=== PATIENT | female | born 1980 | race Caucasian/White ===

== ENCOUNTER 2020-04-20 12:44 | Inpatient (IN) | payer OTHER ==
[2020-04-20] VITALS (28 sets, daily range): BP systolic 110–161; BP diastolic 66–89
--- NOTE | 2020-04-20 12:30 | NUR ---
Arrived to unit via EMS on cart, pt awake and slightly drowsy. Report at the bedside from EMS. THis RN and Dr Wiley to bedside. Pt transferred to bed by multiple staff and EMS. Plan of care reviewed with pt and hx obtained by DR Wiley and this RN. Assessment of vaginal bleeding reveals moderate to heavy noted on pad with several 2-3cm clots noted on pad. abdomen firm upon palpation and pt moaning softly. Ultrasound applied per Dr Wiley with no movement noted and no fhr noted per dr wiley. VS obtained per Harika Red RN. 1240 IV initiated with LR bolus infusing per pump at 999ml/hr. 02 per non-rebreather mask initiated at 15L [address] wiley 1243 doppler at this time with no heart tones detected
[~2020-04-20 12:44] MED LIST: LACTATED RINGERS 1,000 ML IV ONE
[2020-04-20] MEDS ORDERED: MISOPROSTOL 200 MCG (CYTOTEC) TABLET PO ONE ×2 (12:45→14:15)
[2020-04-20] MEDS ORDERED: D5 LR IV SOLUTION 1,000 ML IV SCH ×2 (12:50→17:53)
[2020-04-20] MEDS ORDERED: BUTORPHANOL INJ 2 MG/ML (STADOL) VIAL IV ONE (13:00)
[2020-04-20] MEDS ORDERED: BUTORPHANOL INJ 2 MG/ML (STADOL) VIAL ONE (13:01)
[2020-04-20] MEDS ORDERED: OXYTOCIN PRE-MIX DRIP 500 ML IV ONE (13:07)
--- NOTE | 2020-04-20 13:15 | History & Physical-OB/GYN ---
History of Present Illness History of Present Illness Reason for visit/HPI Presented by EMS from home for vaginal bleeding. No care. with history of 10 vaginal deliveries. All at hospital. Had last delivery with Dr. Vee, but had PNC with [facility] certified credit counselor with this . She states she started having back pain and contractions last night, but having bleeding this morning. She thinks she is 35 weeks based on her LMP. EMS planned to take to [place] but instead came this way at family request. She states history of blood pressure problems with previous pregnancies but not with this one. She is not on any medications except vitamins. EMS did not check contractions or hearttones (did not have ability to). They attempted IV access and patient states she "is a difficult stick". In addition, she reports increased abdominal pain. Cannot remember or tell me when the baby last moved or she appreciated any movement. States all her babies have been "big". She does not have nausea. She is talking but EMS states she has been more quiet and not talking, more moaning, the last few minutes of the ambulance ride. He did say she had a consistent flow of blood from vagina. She presents with large pad soaked through with large clots. There is blood on the legs and inner thighs. She is on the ambulance gurney and is moaning rhythmically about every 2 minutes. By bedside US there no no movement, no hearttones. There is fluid. Cervix is 7/90/-2 and membranes intact. I can palpate the vertex. There is not evidence of previa. suspect placental abruption. Date of Admission 04/20/2020 Date Seen by a Provider: Apr 20, 2020 Time Seen by a Provider: 12:40 I consulted on this patient on 04/20/20 13:01 Attending Physician Margarette Grullon DO Admitting Physician No,Local Physician Consult Allergies and Home Medications Allergies Coded Allergies: No Known Drug Allergies (Unverified , 04/20/20) Patient Home Medication List Home Medication List Reviewed: Yes Past Spobaoh-Jtvicx-Bzjlyb Hx Patient Social History Marrital Status: Number of Children: 10 Number of living children: 10 Employed/Student: unemployed Alcohol Use: Denies Use Recreational Drug Use: No Smoking Status: Never a Smoker 2nd Hand Smoke Exposure: No Physical Abuse Screen: No Sexual Abuse: No Recent Foreign Travel: No Contact w/other who traveled: No Recent Hopitalizations: No Recent Infectious Disease Expo: No Immunizations Up To Date Tetanus Booster (TDap): Unknown Seasonal Allergies Seasonal Allergies: No Surgeries Yes Respiratory Yes Cardiovascular Yes Neurological Yes Reproductive System : Yes Hx : 11 Hx Para: 10 Hx Total # of Abortions (Spona: 0 Hx Reproductive Disorders: No Sexually Transmitted Disease: No HIV/AIDS: No Female Reproductive Disorders: Denies Genitourinary No Gastrointestinal No Musculoskeletal No HEENT History of HEENT Disorders: No Loss of Vision: Denies Cancer No Did You Recieve Any Treatments: No Psychosocial History of Psychiatric Problem: No Blood Transfusions History of Blood Disorders: No Reviewed Nursing Assessment Reviewed/Agree w Nursing PMH: Yes Family Medical History Significant Family History: No Pertinent Family Hx Review of Systems Constitutional: dizziness, weakness EENTM: no symptoms reported Respiratory: short of breath Cardiovascular: other (tachycardia) Gastrointestinal: no symptoms reported Genitourinary: no symptoms reported Expected Date of Delivery: May 24, 2020 Control/STD Prophylaxis: None Musculoskeletal: no symptoms reported Skin: no symptoms reported Psychiatric/Neurological: No Symptoms Reported All Other Systems Reviewed Negative Unless Noted: Yes Physical Exam Physical Exam Vital Signs Capillary Refill : General Appearance: Moderate Distress Respiratory: Lungs Clear Cardiovascular: No Edema, Tachycardia Abdominal: normal bowel sounds Gynecology/General: Other (abdomen is tense with contractions noted every 2 minutes. Tender to palpation) Labia: WNL Vagina: Bleeding Cervix: Other (see above) Pelvic Exam: vaginal bleeding, other (AROM with bloody fluid) Assessment/Plan Admission Diagnosis 1. approximately 35 week gestation based on LMP 2. No pnc 3. third trimester bleeding with suspected abruption Admitted. Plan AROM and delivery Placenta to path Labs pending. She will accept blood products if needed. DIC panel done. preeclampsia labs done (BP 138/82, P 108) Admission Status: Inpatient Order (span 2 midnights) Reason for Inpatient Admission: placental abruption MARGARETTE GRULLON DO Apr 20, 2020 13:15
[2020-04-20 13:50] LABS: BILIRUBIN,URINE NEGATIVE (NEGATIVE); CLARITY,URINE SL CLOUDY; COLOR,URINE YELLOW; GLUCOSE, URINE (UA) NEGATIVE (NEGATIVE); KETONES,URINE NEGATIVE (NEGATIVE); LEUKOCYTE ESTERASE ,URINE NEGATIVE (NEGATIVE); NITRITE,URINE NEGATIVE (NEGATIVE); PH,URINE 5.5 (5-9); PROTEIN,URINE TRACE (NEGATIVE)
--- NOTE | 2020-04-20 13:54 | NUR ---
spontaneous vaginal delivery of non-viable male infant. infant placed on pt abdomen, cord clamped and cut per Dr Morton. 1356 spontaneous vaginal delivery of placenta with cord. pitocin started at 999ml/hr. ff1/u with heavy bleeding noted 1357 vaginal exam with large clots manually expressed per dr morton. 1403 800mcg cytotec placed rectally per Dr Morton. continued ff1/u with several clots expressed and active bleeding noted. 1405 order to notify supervisor spring up of need for stat crew for OR due to continued bleeding. 1414 LR bolus 1000L initiated and continued infusion of pitocin wide open. 1415 ff3/u with lt-mod rubra and no clots expressed. 1420 anesthesia student fine unhairer to bedside discussing plan of care with pt. 1421 Dr Morton to bedside and discussing plan of care with pt regarding need for surgical intervention and what procedure she is consenting the pt for. 1440 monitors off pt and pt wheeled to OR suite by OR staff and anesthesia
[2020-04-20] MEDS ORDERED: MISOPROSTOL 200 MCG (CYTOTEC) TABLET ONE (14:03)
[2020-04-20 14:08] LABS: BASOPHILS % (AUTO) 0 % (0-10); EOSINOPHILS % (AUTO) 0 % (0-10); HEMATOCRIT 24 % (35-52); HEMOGLOBIN 8.1 g/dL (11.5-16.0); LYMPHOCYTES # (AUTO) 1.3 10^3/uL (1.0-4.0); LYMPHOCYTES % (AUTO) 10 % (12-44); MEAN CORPUSCULAR HEMOGLOBIN 28 pg (25-34); MEAN CORPUSCULAR HGB CONC 33 g/dL (32-36); MEAN CORPUSCULAR VOLUME 85 fL (80-99); MEAN PLATELET VOLUME 11.4 fL (9.0-12.2); MONOCYTES # (AUTO) 0.8 10^3/uL (0.0-1.0); MONOCYTES % (AUTO) 6 % (0-12); NEUTROPHILS # (AUTO) 10.6 10^3/uL (1.8-7.8); NEUTROPHILS % (AUTO) 83 % (42-75); PLATELET COUNT 164 10^3/uL (130-400); WHITE BLOOD COUNT 12.8 10^3/uL (4.3-11.0)
[2020-04-20] MEDS: LACTATED RINGERS 1,000 ML IV PRN ×5 (14:14→17:38)
[2020-04-20] MEDS ORDERED: OXYTOCIN PRE-MIX DRIP 500 ML IV SCH (14:14)
[2020-04-20 14:15] LABS: RBC,URINE RARE /HPF
[2020-04-20] MEDS ORDERED: CARBOPROST (HEMABATE) 250 MCG/ML AMP IM PRN (14:15)
[2020-04-20] MEDS ORDERED: NS IV 500 ML 500 ML IV SCH (14:15)
[2020-04-20] MEDS ORDERED: ceFAZolin 2 GM IV Premixed 50 ML IV ONE (14:15)
[2020-04-20 14:16] LABS: BACTERIA,URINE MODERATE /HPF; SQUAMOUS EPITHELIAL CELL,UR RARE /HPF
[2020-04-20 14:16] LABS: ALBUMIN 3.3 GM/DL (3.2-4.5); CHLORIDE 104 MMOL/L (98-107); POTASSIUM 4.1 MMOL/L (3.6-5.0); SODIUM 135 MMOL/L (135-145)
[2020-04-20 14:17] LABS: CALCIUM 8.6 MG/DL (8.5-10.1)
[2020-04-20 14:18] LABS: GLUCOSE 128 MG/DL (70-105)
[2020-04-20 14:19] LABS: TOTAL PROTEIN 6.2 GM/DL (6.4-8.2)
[2020-04-20 14:20] LABS: BILIRUBIN,TOTAL 1.2 MG/DL (0.1-1.0); CARBON DIOXIDE 17 MMOL/L (21-32)
[2020-04-20 14:22] LABS: ALKALINE PHOSPHATASE 259 U/L (40-136); CREATININE SERUM 0.54 MG/DL (0.60-1.30); GFR ESTIMATED > 60
[2020-04-20 14:23] LABS: BUN/CREATININE RATIO 19
[2020-04-20 14:25] LABS: ALANINE AMINOTRANSFERASE 28 U/L (0-55)
[2020-04-20] MEDS ORDERED: LIDOCAINE PF 2% 5 ML (XYLOCAINE) VIAL ONE ×2 (14:27→16:34)
[2020-04-20] MEDS ORDERED: proPOfol 200 MG/20 ML (DIPRIVAN) VIAL IV ONE ×2 (14:27→16:34)
[2020-04-20] MEDS ORDERED: MIDAZOLAM 2 MG/2 ML (VERSED) VIAL ONE (14:28)
[2020-04-20] MEDS ORDERED: fentaNYL INJECTION 100 MCG/2 ML AMP ONE ×3 (14:28→18:17)
[2020-04-20] MEDS ORDERED: METOCLOPRAMIDE INJ 10 MG/2 ML (REGLAN) IV ONE (14:30)
[2020-04-20] MEDS ORDERED: TRANEXAMIC ACID INJECTION 1,000 MG in NS (IVPB) 100 ML IV ONE (14:30)
[2020-04-20] MEDS ORDERED: CITRIC ACID/SOB CIT (BICITRA) 30 ML UDC PO ONE (14:30)
[2020-04-20 14:35] LABS: FIBRINOGEN 184 MG/DL (221-496); INR 1.1 (0.8-1.4); PARTIAL THROMBOPLASTIN TIME 28 SEC (24-35); PROTHROMBIN TIME PATIENT 14.2 SEC (12.2-14.7)
--- NOTE | 2020-04-20 14:44 | NUR ---
infant into nursery. weight, measurements, lock of hair and footprints obtained. placed in cuddle cot. weight: 7lbs 1.4oz. 3215gm length: 20.5" Head: 13" Chest: 12.5" Abdomen: 12"
[2020-04-20 14:50] LABS: FIBRIN DEGRADATION PRODUCTS >= 20.00 UG/ML (0.00-0.49)
[2020-04-20] MEDS ORDERED: ceFAZolin INJECTION 2,000 MG ONE (14:55)
[2020-04-20] MEDS ORDERED: CARBOPROST (HEMABATE) 250 MCG/ML AMP IM ONE ×2 (15:08→15:39)
[2020-04-20] MEDS ORDERED: METHYLERGONOVINE 0.2 MG/ML (METHERGINE) AMP ONE (15:08)
[2020-04-20] MEDS: CATHETER FLUSH 10 ML SYR IV SCH (15:26)
[2020-04-20 16:04] LABS: HEMOGLOBIN 7.5 g/dL (11.5-16.0)
[2020-04-20] MEDS ORDERED: SEVOFLURANE (ULTANE) 15 ML INHAL SOLN ONE ×8 (16:34→17:53)
[2020-04-20] MEDS ORDERED: ROCURONIUM 10 MG/ML 5 ML SYRINGE IV ONE ×2 (16:35→17:15)
[2020-04-20] MEDS ORDERED: PHENYLEPHRINE 100 MCG/ML 10 ML (ANESTHESIA) SYR ONE (16:49)
[2020-04-20] MEDS ORDERED: PREN-37 PO (16:50)
[2020-04-20] MEDS ORDERED: SUCCINYLCHOLINE INJ 100 MG/5 ML SYR/VIAL ONE (17:20)
[2020-04-20] MEDS ORDERED: MEPERIDINE (DEMEROL) INJ 50 MG/ML IVP ONE (17:30)
[2020-04-20] MEDS ORDERED: ONDANSETRON 4 MG/2 ML (SDV) Z0FRAN IVP PRN ×2 (17:30→18:00)
[2020-04-20] MEDS ORDERED: morphine INJ 10 MG/ML 1ML (SYR OR VIAL) IVP ONE (17:30)
[2020-04-20] MEDS ORDERED: fentaNYL INJECTION 100 MCG/2 ML AMP IVP ONE (17:30)
[2020-04-20] MEDS ORDERED: SUGAMMADEX 500 MG/5 ML VIAL (BRIDION) IV ONE ×2 (17:47→18:03)
--- NOTE | 2020-04-20 17:53 | Operative Report ---
Operative Report Date of Procedure/Surgery Apr 20, 2020 Surgeon (s) MARGARETTE GRULLON DO Host And Hostess (s): NA Post-Operative Diagnosis PPH hemorrhage, placental abruption, retained placenta Procedure Performed Vaginal delivery of non viable 36 week fetus (IUFD), EUA, PP curettage, AURY, bilateral salpingectomy Description of Procedure Anesthesia Type: General Estimated blood loss (mL): 2000 ml in OR and 2500 in labor/delivery Specimen(s) collected/removed uterus, bilateral tubes, curettings Description of the Procedure She presented to the hospital via EMS with complaint of vaginal bleeding. contractions started last night about 9 pm and then bleeding was noted this morning about 10 am. she has had not care, except from the local [facility] ordnance artificer. On exam, she had severe abdominal pain with a soaked vaginal pad and large clots noted. By bedside ultrasound, there were not any hearttones noted. There was no movement. She could not recall when she last felt the baby move, but her , once he arrived via private car, thought it was this morning, but not recently. She was 7 cm dilated and noted to be margarita almost continually. The membranes were noted to be intact. Once an IV was started, fluids and labs were drawn, and she was given Stadol 1 mg per request of patient, membranes were ruptured and the fluid was noted to be blood tinged. There was a foul odor noted. She progressed rapidly to complete dilation and then the non viable male fetus was delivered over an intact perineum. There was a very large gush of blood fluid on the bed and on the floor, suggesting unclotted blood. The placenta delivered very quickly after the delivery of the fetus and she had numerous clots. I evacuated numerous clots from the vagina and lower uterine segment. I did straight cath because the uterus was not margartia adequately and only had about 25 ml of urine. IV pitocin was given (30 units IV) and then . She was also given misoprostol 800 mcg rectally. She still had continued bleeding and I suspected retained placenta as the placenta was in pieces and unable to determine whether it was intact. I examined the vagina and did not find any tears or cervical lacerations. At this point, because of the suspicion of retained placenta, I consented the patient for exam under anesthesia, uterine curettage and possible hysterectomy. Procedure:: Ms. Galarza was taken to the operating room and placed on the operatin g table in a supine position. After adequate anesthesia, the patient was placed in the dorsal lithotomy position. The vagina was prepped. The patient was then draped. A Delarosa catheter was placed in the bladder. A weighted speculum was then placed in the vagina to visualize the cervix. she continued to be actively bleeding with blood in the vault and some clots, but mainly unclotted blood. Note that the Hgb was 8, but this was not the initial hgb drawn at admission, but rather just prior to delivery (unsure why the lab did not run the initial labs). Plts were wnl, but d dimer was >20 suggesting possible DIC. The anterior lip of the cervix was then grasped with a tenaculum. I then changed this to a ring forceps, because, as the cervix was completely dilated, I was concerned with tearing of the tenaculum. A sharp curettage with banjo curette was then was performed. There were segments of placental tissue noted and sent for pathology. Once I felt that the tissue was adequately removed, she still had bleeding and the lower uterus did not seem to be margarita. She was given Hemabate and Methergine and still continued to bleed. We did have a Bakri balloon and this was placed. However, as the upper uterus was contracted, but the lower uterus was not, I could not advance the balloon to the fundus as it is intended, so this was aborted. Once no further tissue could be removed, the procedure was terminated and the equipment was removed from the vagina. The cervix was carefully inspected once last time to ensure hemostasis from the the tenaculum site and that there was no significant hemorrhage from the os and then the weighted speculum was removed. she continued to bleed and at this point total blood loss (2500 from the abruption and delivery and at least 1500 ml afterward, and no assessment of the bleeding prior to the admission to the hospital) I felt the most prudent was to proceed with hysterectomy. Transexemic acid was not utilized as I was concerned with DIC and this would be contraindicated. She was now repositioned for hysterectomy. the abdomen had been previously prepped. She has received 2 units of PRBCs (the first before the d&c) and 2 more units are on the way to the OR. Under general anaesthetic the patient was placed in the supine position. A midline incision was made with the scalpel and the incision was carried down to the fascia with cautery. The fascia was incised transversely and dissected off the rectus muscle using blunt dissection. Electrocautery was used for hemostasis. The peritoneum was opened taking care not to injure any underlying structures. Laparotomy revealed no obvious abnormalities. There was no blood or free fluid in the abdomen, And the uterus was noted to be boggy. It was enlarged (about 24 week sized). An extra large Julio ) retractor was placed and the bowel was packed away into the upper abdomen to improve visualization and protect adjacent tissue. The tubes and ovaries appeared normal bilaterally, except the right ovary was adherent to the posterior right uterus. . The cornea were grasped using Paean clamps and the uterus elevated. The round ligament on the left was grasped and divided using cautery and then suture ligated. The peritoneum was opened lateral to the infundibulopelvic ligaments. The anterior leaf of the broad ligament was divided and a bladder flap created. An avascular window was found in the posterior leaf of the broad ligament and a hole opened. The uteroovarian ligament was clamped, and cut/cauterized with the LigaSure device. The same procedure was carried out on the right with the ureter again found to be well low in the pelvis and clear of the surgical field. Once the anterior leaf of the broad ligament was completely divided the bladder was taken down off the lower segment of the uterus and the cervix using -blunt dissection. The uterine vessels were skeletonized bilaterally. The uterine vessels were bilaterally clamped, cut and suture ligated. The cardinal ligaments were bilaterally clamped, cut and suture ligated. I then amputated the uterus at the level of the uteroscral ligaments were bilaterally. The uterus, and tubes were all sent to pathology. Both corners of the vaginal vault were secured and the cervix was oversewed in a baseball type stitch with 0Vicryl. I then irrigate the pelvis with sterile water. There was some bleeding from the cervical stump so the peritoneum was closed over the stump with interrupted figure of eight stitches. All pedicles were then sequentially checked for hemostasis which appeared excellent. The bowel pack was then removed and the omentum and small bowel were assessed for injury and hemostasis. All packs and retractors were removed from the abdomen. The peritoneum was closed using a running vicryl suture. The subfascial space was inspected and hemostasis obtained with cautery. The fascia was closed using a running, non- locking suture of 1 PDS. Subcutaneous tissue was inspected and hemostasis ensured with cautery. I then used interrupted 30 Vicryl to reapproximate this area. The skin was closed with a jennifer.. At the end of the procedure all sponge, needle and instrument counts were correct. Estimated blood loss was 2000ml. I did reexamined the vagina and found several small lacerations that were bleeding. These were from the vaginal exam/curettage and not the delivery, as the tissue was very friable. I placed 3-0 figure of 8 stitches to control bleeding. Blood was noted to be clotting at this point. The patient was extubated and taken to recovery in stable but guarded condition. Mass transfusion protocol was begun during the surgery. she received 2 units of PRBCs after delivery and during the dilation and curettage and 2 additional during the hysterectomy. She received an additional unit of FFP. Ancef was given 2 grams IV prior to the procedure and then Metronidazole and Ancef continued for 24 hours. the placenta was sent for pathology and cultures were taken (due to foul smell of the fluid and the delivery). Findings of the Procedure Non viable male fetus, APGARS 0 Near complete placenta abruption Normal appearing cord with blood still in cord, partially clotted no skin sloughing quick visual exam appeared within normal with no obvious abnormalities weight 7#3 ounces Allergies and Home Medications Allergies Coded Allergies: No Known Drug Allergies (Unverified , 04/20/20) Home Medications Acetaminophen 500 Mg Tablet, 1,000 MG PO Q8H Prescribed by: MARGARETTE GRULLON on 04/22/20 09 Ferrous Sulfate 325 Mg Tablet, 325 MG PO BID WITH MEALS Prescribed by: MARGARETTE GRULLON on 04/22/20907 Ibuprofen 600 Mg Tablet, 600 MG PO Q6HR PRN for PAIN-MILD (1-4) Prescribed by: MARGARETTE GRULLON on 04/22/20907 Oxycodone Hcl 5 Mg Tab, 5 MG PO Q4H PRN for PAIN-SEVERE (8-10) Prescribed by: MARGARETTE GRULLON on 04/22/20 09 Vit/Iron Fumarate/FA 1 Each Tablet, 1 EACH PO DAILY, (Reported) Patient Home Medication List Home Medication List Reviewed: Yes MARGARETTE GRULLON DO Apr 20, 2020 17:53
[2020-04-20] MEDS ORDERED: morphine INJ 4 MG/ML 1 ML (VIAL/SYRINGE) IVP PRN (18:00)
[2020-04-20] MEDS ORDERED: MEPERIDINE (DEMEROL) INJ 50 MG/ML ONE (18:17)
--- NOTE | 2020-04-20 19:16 | NUR ---
Pt arrived from recovery. Report received from mansoor dejesus. pt orientated to room. s/o at bedside. call light within reach. assessment completed. pt c/o pain. ferrer to dd. abdominal incision intact.
[2020-04-20] MEDS ORDERED: morphine INJ 4 MG/ML 1 ML (VIAL/SYRINGE) ONE (19:35)
[2020-04-20] MEDS ORDERED: KETOROLAC 30 MG/ML VIAL ONE (19:36)
[2020-04-20] MEDS ORDERED: DOCUSATE SODIUM 100 MG (COLACE) CAP PO ONE (19:36)
[2020-04-20] MEDS ORDERED: metroNIDAZOLE 500MG/100ML IVPB 100 ML ONE (19:37)
[2020-04-20] MEDS: metroNIDAZOLE 500MG/100ML IVPB 100 ML IV SCH (19:44)
[2020-04-20] MEDS: KETOROLAC 30 MG/ML VIAL IVP SCH (19:44)
[2020-04-20 20:18] LABS: BASOPHILS % (AUTO) 0 % (0-10); EOSINOPHILS % (AUTO) 0 % (0-10); HEMATOCRIT 26 % (35-52); HEMOGLOBIN 8.6 g/dL (11.5-16.0); LYMPHOCYTES % (AUTO) 9 % (12-44); MEAN CORPUSCULAR HEMOGLOBIN 29 pg (25-34); MEAN CORPUSCULAR HGB CONC 34 g/dL (32-36); MEAN CORPUSCULAR VOLUME 86 fL (80-99); MEAN PLATELET VOLUME 11.2 fL (9.0-12.2); MONOCYTES # (AUTO) 0.7 10^3/uL (0.0-1.0); MONOCYTES % (AUTO) 6 % (0-12); NEUTROPHILS # (AUTO) 9.4 10^3/uL (1.8-7.8); NEUTROPHILS % (AUTO) 84 % (42-75); PLATELET COUNT 145 10^3/uL (130-400); WHITE BLOOD COUNT 11.2 10^3/uL (4.3-11.0)
[2020-04-20] MEDS ORDERED: ceFAZolin 2 GM IV Premixed 50 ML IV SCH (20:30)
[2020-04-20 20:42] LABS: FIBRIN DEGRADATION PRODUCTS 10.46 UG/ML (0.00-0.49)
[2020-04-20] MEDS: ceFAZolin 2 GM IV Premixed 50 ML IV SCH (23:05)
[2020-04-21] VITALS (11 sets, daily range): BP systolic 101–125; BP diastolic 54–78
[2020-04-21] MEDS: KETOROLAC 30 MG/ML VIAL IVP SCH ×3 (01:41→14:06)
[2020-04-21] MEDS ORDERED: CHLORASEPTIC LOZENGE MM PRN (01:45)
[2020-04-21] MEDS ORDERED: CHLORASEPTIC LOZENGE MM ONE (01:45)
--- NOTE | 2020-04-21 01:56 | NUR ---
Pt c/o sore throat, Chloraseptic wesley, ordered. Pt has multiple bath blankets on here. pt reports that she feels hot. temp 38.2. Bath blankets removed. had patient deep breathe and cough. Will continue to monitor temp.
[2020-04-21] MEDS: metroNIDAZOLE 500MG/100ML IVPB 100 ML IV SCH ×2 (04:25→13:50)
[2020-04-21 05:27] LABS: BASOPHILS % (AUTO) 0 % (0-10); EOSINOPHILS % (AUTO) 0 % (0-10); HEMATOCRIT 20 % (35-52); LYMPHOCYTES # (AUTO) 1.5 10^3/uL (1.0-4.0); LYMPHOCYTES % (AUTO) 16 % (12-44); MEAN CORPUSCULAR HEMOGLOBIN 29 pg (25-34); MEAN CORPUSCULAR HGB CONC 34 g/dL (32-36); MEAN CORPUSCULAR VOLUME 84 fL (80-99); MEAN PLATELET VOLUME 11.2 fL (9.0-12.2); MONOCYTES # (AUTO) 0.9 10^3/uL (0.0-1.0); MONOCYTES % (AUTO) 10 % (0-12); NEUTROPHILS % (AUTO) 73 % (42-75); PLATELET COUNT 168 10^3/uL (130-400); WHITE BLOOD COUNT 9.6 10^3/uL (4.3-11.0)
[2020-04-21 05:29] LABS: HEMOGLOBIN 6.6 g/dL (11.5-16.0)
--- NOTE | 2020-04-21 05:30 | NUR ---
abdominal dsg removed, continuos serosanguineous drainage noted around the middle of the incision with small amount pressure on the abdomen. new drsg reapplied. vs taken. pt states that she just finished completing her IS. S/O remains at bedside. Pt denies any needs at this time.
--- NOTE | 2020-04-21 06:00 | NUR ---
called to hospital. Update provided on pt's labs, incision site, vs, and I/O. New orders obtained.
[2020-04-21] MEDS: ceFAZolin 2 GM IV Premixed 50 ML IV SCH ×2 (06:20→15:05)
[2020-04-21 06:43] LABS: FIBRIN DEGRADATION PRODUCTS 2.65 UG/ML (0.00-0.49); PROTHROMBIN TIME PATIENT 13.9 SEC (12.2-14.7)
[2020-04-21 06:47] LABS: ALANINE AMINOTRANSFERASE 14 U/L (0-55); ALBUMIN 2.2 GM/DL (3.2-4.5); ALKALINE PHOSPHATASE 110 U/L (40-136); BILIRUBIN,TOTAL 1.1 MG/DL (0.1-1.0); BUN/CREATININE RATIO 17; CALCIUM 7.1 MG/DL (8.5-10.1); CARBON DIOXIDE 20 MMOL/L (21-32); CHLORIDE 104 MMOL/L (98-107); CREATININE SERUM 0.64 MG/DL (0.60-1.30); GFR ESTIMATED > 60; GLUCOSE 138 MG/DL (70-105); POTASSIUM 3.7 MMOL/L (3.6-5.0); SODIUM 132 MMOL/L (135-145); TOTAL PROTEIN 4.1 GM/DL (6.4-8.2)
[2020-04-21] MEDS ORDERED: FUROSEMIDE 40 MG/4 ML INJ (LASIX) IVP ONE ×2 (07:30→09:00)
[2020-04-21] MEDS ORDERED: NS IV 500 ML 500 ML IV SCH (07:30)
--- NOTE | 2020-04-21 07:45 | NUR ---
ASsisted to hf position, pt coughing with some production/use of splinting incision. pt wanting to eat regular breakfast tray, denies nausea.
--- NOTE | 2020-04-21 07:52 | Progress Note ---
Subjective Date Seen by a Provider: Apr 21, 2020 Time Seen by a Provider: 07:20 Subjective/Events-last exam TO ICU after surgery per protocol at night (mass transfusion and night surgery). Transferred back to 3rd floor once stable. Tolerating Clear. Difficult to draw blood work (difficult stick and multiple attempts in the ambulance makes access difficult). UA has been low/barely adequate. She is dizzy and BP is low with elevated heart rate. Labs not consistent with DIC but does have some oozing from incision. Has not yet been up out of bed. No flatus but reports hunger, no nausea, no emesis. Performing IS, SCDs intact Review of Systems General: Fatigue Gastrointestinal: Abdominal Pain (appropriate), Other (no flatus); No: Nausea, Vomiting Objective Exam Vital Signs Date Time Temp Pulse Resp B/P (MAP) Pulse Ox O2 Delivery O2 Flow Rate FiO2 04/21/20 05:30 38.2 109 18 101/57 (72) 96 Room Air 04/21/20 04:31 37.9 04/21/20 02:00 38.2 96 18 124/61 (82) 94 Room Air 04/21/20 00:16 Room Air 04/20/20 23:45 37.3 86 18 115/70 (85) 93 Room Air 04/20/20 22:00 36.9 82 18 125/79 (94) 96 Room Air 04/20/20 20:12 36.7 82 18 130/85 (100) 98 Room Air 04/20/20 19:13 Room Air 04/20/20 19:13 36.4 20 114/82 (93) 97 Room Air 04/20/20 19:00 20 116/82 (93) 97 Room Air 04/20/20 19:00 Room Air 04/20/20 18:50 20 116/87 (97) 97 Room Air 04/20/20 18:45 Room Air 04/20/20 18:40 20 117/76 (90) 98 Room Air 04/20/20 18:30 OxyMask 3 04/20/20 18:30 20 117/78 (91) 98 OxyMask 3 04/20/20 18:20 20 118/89 (99) 100 OxyMask 6 04/20/20 18:15 OxyMask 6 04/20/20 18:08 36.3 18 110/80 (90) 98 OxyMask 6 04/20/20 18:08 OxyMask 6 04/20/20 14:33 80 20 139/81 (100) 100 Room Air 15.00 04/20/20 14:30 93 20 142/86 (104) 100 Room Air 15.00 04/20/20 14:23 93 20 138/76 (96) 100 Room Air 15.00 04/20/20 14:18 86 20 135/79 (97) 100 Room Air 15.00 04/20/20 14:14 83 20 138/83 (101) 100 Room Air 15.00 04/20/20 14:05 84 20 122/69 (86) 100 Room Air 15.00 04/20/20 13:45 77 20 150/79 (102) 100 Room Air 15.00 04/20/20 13:30 64 20 139/77 (97) 100 Room Air 15.00 04/20/20 13:25 77 20 131/71 (91) 100 Room Air 15.00 04/20/20 13:20 75 20 161/69 (99) 100 Room Air 15.00 04/20/20 13:15 75 20 131/66 (87) 100 Room Air 15.00 04/20/20 13:10 88 20 119/72 (88) 100 Room Air 15.00 04/20/20 13:05 82 20 131/75 (93) 100 Room Air 15.00 04/20/20 13:00 90 20 134/86 (102) 100 Room Air 15.00 04/20/20 12:55 88 20 131/88 (102) 100 Room Air 15.00 04/20/20 12:50 90 20 129/86 (100) 100 Room Air 15.00 04/20/20 12:40 37.2 87 20 100 Non Rebreather 04/20/20 12:35 37.2 87 20 112/82 (92) 100 Room Air 15.00 I & O 04/21/20 07:00 Intake Total 3150 ml Output Total 3175 ml Balance -25 ml Capillary Refill : Less Than 3 SecondsLess Than 3 Seconds General Appearance: No Apparent Distress, Other (sitting up in bed) Neck: Full Range of Motion Respiratory: Crackles, Decreased Breath Sounds, Other (poor effort) Cardiovascular: Regular Rate, Rhythm, Other (2+ edema) Gastrointestinal: normal bowel sounds, other (drainage on dressing, dressing changed. [place] intact) Neurologic/Psychiatric: Alert, Oriented x3, No Motor/Sensory Deficits Skin: Normal Color, Warm/Dry Lymphatic: No Adenopathy Results Lab Laboratory Tests 04/20/20 12:42: Urine Color YELLOW, Urine Clarity SL CLOUDY, Urine pH 5.5, Urine Specific [place] >=1.030, Urine Protein TRACEH, Urine Glucose (UA) NEGATIVE, Urine Ketones NEGATIVE, Urine Nitrite NEGATIVE, Urine Bilirubin NEGATIVE, Urine Urobilinogen 0.2, Urine Leukocyte Esterase NEGATIVE, Urine RBC (Auto) 1+H, Urine RBC RARE, Urine WBC 2-5, Urine Squamous Epithelial Cells RARE, Urine Crystals NONE, Urine Bacteria MODERATEH, Urine Casts NONE, Urine Mucus LARGEH, Urine Culture Indicated NO 04/20/20 14:02: White Blood Count 12.8H, Red Blood Count 2.86L, Hemoglobin 8.1L, Hematocrit 24L, Mean Corpuscular Volume 85, Mean Corpuscular Hemoglobin 28, Mean Corpuscular Hemoglobin Concent 33, Red Cell Distribution Width 15.8H, Platelet Count 164, Mean Platelet Volume 11.4, Immature Granulocyte % (Auto) 1, Neutrophils (%) (Auto) 83H, Lymphocytes (%) (Auto) 10L, Monocytes (%) (Auto) 6, Eosinophils (%) (Auto) 0, Basophils (%) (Auto) 0, Neutrophils # (Auto) 10.6H, Lymphocytes # (Auto) 1.3, Monocytes # (Auto) 0.8, Eosinophils # (Auto) 0.0, Basophils # (Auto) 0.0, Immature Granulocyte # (Auto) 0.1, Prothrombin Time 14.2, INR Comment 1.1, Activated Partial Thromboplast Time 28, Fibrinogen 184L, D-Dimer >= 20.00*H, Sodium Level 135, Potassium Level 4.1, Chloride Level 104, Carbon Dioxide Level 17L, Anion Gap 14, Blood Urea Nitrogen 10, Creatinine 0.54L, Estimat Glomerular Filtration Rate > 60, BUN/Creatinine Ratio 19, Glucose Level 128H, Calcium Level 8.6, Corrected Calcium 9.2, Total Bilirubin 1.2H, Aspartate Amino Transf (AST/SGOT) 50H, Alanine Aminotransferase (ALT/SGPT) 28, Alkaline Phosphatase 259H, Total Protein 6.2L, Albumin 3.3 04/20/20 15:54: Hemoglobin 7.5L, Hematocrit 23L, Platelet Count 151 04/20/20 20:10: White Blood Count 11.2H, Red Blood Count 2.99L, Hemoglobin 8.6L, Hematocrit 26L, Mean Corpuscular Volume 86, Mean Corpuscular Hemoglobin 29, Mean Corpuscular Hemoglobin Concent 34, Red Cell Distribution Width 14.9H, Platelet Count 145, Mean Platelet Volume 11.2, Immature Granulocyte % (Auto) 2, Neutrophils (%) (Auto) 84H, Lymphocytes (%) (Auto) 9L, Monocytes (%) (Auto) 6, Eosinophils (%) (Auto) 0, Basophils (%) (Auto) 0, Neutrophils # (Auto) 9.4H, Lymphocytes # (Auto) 1.0, Monocytes # (Auto) 0.7, Eosinophils # (Auto) 0.0, Basophils # (Auto) 0.0, Immature Granulocyte # (Auto) 0.2H, Prothrombin Time 14.0, INR Comment 1.0, Activated Partial Thromboplast Time 24, Fibrinogen 208L, D-Dimer 10.46H 04/21/20 05:20: White Blood Count 9.6, Red Blood Count 2.31L, Hemoglobin 6.6#*L, Hematocrit 20*L , Mean Corpuscular Volume 84, Mean Corpuscular Hemoglobin 29, Mean Corpuscular Hemoglobin Concent 34, Red Cell Distribution Width 15.7H, Platelet Count 168, Mean Platelet Volume 11.2, Immature Granulocyte % (Auto) 1, Neutrophils (%) (Auto) 73, Lymphocytes (%) (Auto) 16, Monocytes (%) (Auto) 10, Eosinophils (%) (Auto) 0, Basophils (%) (Auto) 0, Neutrophils # (Auto) 7.0, Lymphocytes # (Auto) 1.5, Monocytes # (Auto) 0.9, Eosinophils # (Auto) 0.0, Basophils # (Auto) 0.0, Immature Granulocyte # (Auto) 0.1 04/21/20 06:10: Prothrombin Time 13.9, INR Comment 1.0, Activated Partial Thromboplast Time 26, Fibrinogen 255, D-Dimer 2.65H, Sodium Level 132L, Potassium Level 3.7, Chloride Level 104, Carbon Dioxide Level 20L, Anion Gap 8, Blood Urea Nitrogen 11, Creatinine 0.64, Estimat Glomerular Filtration Rate > 60, BUN/Creatinine Ratio 17, Glucose Level 138H, Calcium Level 7.1L, Corrected Calcium 8.5, Total Bi lirubin 1.1H, Aspartate Amino Transf (AST/SGOT) 14, Alanine Aminotransferase (ALT/SGPT) 14, Alkaline Phosphatase 110, Total Protein 4.1L, Albumin 2.2L Procedures dilation and curettage/EUA AURY/bilateral salpingectomy transfusion x 4 units, 1 unit FFP Assessment/Plan Assessment/Plan Assess & Plan/Chief Complaint 1. POD 1 s/p emergency AURY, bilateral salpingectomy, d&c due to retained placenta/placental abruption/ post hemorrhage (EBL total 4500) 2. S/p 4 units PRBCs and 1 u FFP, current Hgb 6 with decreased UA and tac hycardia 3. Stillbirth due to placental abruption Plan - routine post op from hysterectomy, advance diet as tolerated, change IVF to NS with 20 K due to hypoglycemia with D5LR. Lasix x 1 and then transfuse 2 more units PRBCs. Repeat labs in the morning. No current evidence of DIC DC ferrer this afternoon if UA is increased with blood, lasix and IVF She would like to DC home if possible tomorrow to have for baby. Clinical Quality Measures Admission Status Admission Dx 1. approximately 35 week gestation based on LMP 2. No pnc 3. third trimester bleeding with suspected abruption Admitted. Plan AROM and delivery Placenta to path Labs pending. She will accept blood products if needed. DIC panel done. preeclampsia labs done (BP 138/82, P 108) DVT/VTE Risk/Contraindication: Risk Factor Score Per Nursin RFS Level Per Nursing on Admit: 2=Moderate MARGARETTE GRULLON DO Apr 21, 2020 07:52
--- NOTE | 2020-04-21 08:01 | NUR ---
Dr Koehler to bedside and reviewing plan of care and assess patient
[2020-04-21] MEDS: ACETAMINOPHEN 500 MG TAB (TYLENOL) PO SCH ×2 (08:38→17:23)
[2020-04-21] MEDS: DOCUSATE SODIUM 100 MG (COLACE) CAP PO SCH ×2 (08:39→20:08)
[2020-04-21] MEDS ORDERED: DOCUSATE SODIUM 100 MG (COLACE) CAP PO SCH (09:00)
--- NOTE | 2020-04-21 10:26 | NUR ---
pt resting comfortably eyes closed. s.o. present at bedside.
[2020-04-21] MEDS: NS W/KCL 20 MEQ/L 1,000 ML IV SCH ×3 (12:20→20:45)
[2020-04-21] MEDS: CATHETER FLUSH 10 ML SYR IV SCH (12:25)
[2020-04-21] MEDS ORDERED: FUROSEMIDE 40 MG/4 ML INJ (LASIX) ONE (12:27)
[2020-04-21] MEDS: METOCLOPRAMIDE 10 MG (REGLAN) TAB PO SCH ×3 (12:29→23:09)
--- NOTE | 2020-04-21 15:33 | Anesthesia-General Post-Op ---
General Patient Condition Mental Status/LOC: Same as Preop Cardiovascular: Satisfactory Nausea/Vomiting: Absent Respiratory: Satisfactory Pain: Controlled Complications: Absent Post Op Complications Complications None Follow Up Care/Instructions Patient Instructions None needed. Anesthesia/Patient Condition Patient Condition Patient is doing well, no complaints, stable vital signs, no apparent adverse anesthesia problems. No complications reported per nursing. JOSUE CULP CRNA Apr 21, 2020 15:33
--- NOTE | 2020-04-21 15:45 | NUR ---
Assisted to side of bed sitting position. bed bath done with rn assist. pt to standing position at side of bed and tolerates well. To chair at side of bed. linens changed. IS done.
--- NOTE | 2020-04-21 16:00 | NUR ---
Assisted from chair at side of bed to rocker. U[place] to pt arms. call light with in reach. pt did well with ambulation in room.
[2020-04-21 17:48] LABS: HEMOGLOBIN 7.9 g/dL (11.5-16.0)
[2020-04-21] MEDS: FERROUS SULF 325 MG (IRON) TAB PO SCH (18:05)
--- NOTE | 2020-04-21 18:20 | NUR ---
H&H called to Dr Koehler.
[2020-04-21] MEDS: IBUPROFEN 600 MG (MOTRIN) TAB PO PRN (20:15)
--- NOTE | 2020-04-21 20:30 | NUR ---
updated on patients status. Order to change dsg and decrease iv fluids received.
--- NOTE | 2020-04-21 21:00 | NUR ---
Incision drsg changed. no active bleeding noted. [place] dsg replaced.
--- NOTE | 2020-04-21 23:00 | NUR ---
Pt assisted to the bathroom. positive void. Pericare completed. pt assisted back to bed. s/o remains at bedside. Pt denies any needs at this time. Will continue to monitor.
[2020-04-22] MEDS: ACETAMINOPHEN 500 MG TAB (TYLENOL) PO SCH ×2 (01:24→08:28)
[2020-04-22] MEDS: IBUPROFEN 600 MG (MOTRIN) TAB PO PRN ×2 (01:24→08:28)
[2020-04-22 02:08] VITALS: BP 110/56
[2020-04-22] MEDS: METOCLOPRAMIDE 10 MG (REGLAN) TAB PO SCH (05:18)
[2020-04-22] MEDS: NS W/KCL 20 MEQ/L 1,000 ML IV SCH (05:18)
[2020-04-22 05:27] VITALS: BP 126/68
--- NOTE | 2020-04-22 05:30 | NUR ---
Abdominal incision viewed, small amount of drainage noted on island dsg
[2020-04-22 06:25] LABS: BASOPHILS % (AUTO) 0 % (0-10); EOSINOPHILS # (AUTO) 0.1 10^3/uL (0.0-0.3); EOSINOPHILS % (AUTO) 1 % (0-10); HEMATOCRIT 22 % (35-52); HEMOGLOBIN 7.2 g/dL (11.5-16.0); LYMPHOCYTES # (AUTO) 1.2 10^3/uL (1.0-4.0); LYMPHOCYTES % (AUTO) 20 % (12-44); MEAN CORPUSCULAR HEMOGLOBIN 29 pg (25-34); MEAN CORPUSCULAR HGB CONC 33 g/dL (32-36); MEAN CORPUSCULAR VOLUME 87 fL (80-99); MEAN PLATELET VOLUME 10.4 fL (9.0-12.2); MONOCYTES # (AUTO) 0.5 10^3/uL (0.0-1.0); MONOCYTES % (AUTO) 8 % (0-12); NEUTROPHILS # (AUTO) 4.1 10^3/uL (1.8-7.8); NEUTROPHILS % (AUTO) 69 % (42-75); PLATELET COUNT 138 10^3/uL (130-400)
[2020-04-22 07:11] LABS: FIBRIN DEGRADATION PRODUCTS 2.17 UG/ML (0.00-0.49); INR 0.9 (0.8-1.4); PROTHROMBIN TIME PATIENT 12.9 SEC (12.2-14.7)
[2020-04-22 08:15] VITALS: BP 124/73
--- NOTE | 2020-04-22 08:15 | NUR ---
A.M. ASSESSMENT COMPLETED. VSS. WANTING TO GO HOME TODAY. MALE INFANT REMAINS IN ROOM IN COOLING COT. SPOUSE AT BEDSIDE.
[2020-04-22] MEDS: FERROUS SULF 325 MG (IRON) TAB PO SCH (08:27)
[2020-04-22] MEDS: DOCUSATE SODIUM 100 MG (COLACE) CAP PO SCH (08:27)
--- NOTE | 2020-04-22 08:42 | NUR ---
CALLED DR. GRULLON TO GIVE STATUS UPDATE. PLAN TO COME SOON AND SEND PT HOME.
--- NOTE | 2020-04-22 09:00 | NUR ---
DR. GRULLON HERE TO SEE PT. AMBULATING IN [facility] WITH STAFF AND SPOUSE.
[2020-04-22] MEDS ORDERED: OXC5T PO (09:08)
[2020-04-22] MEDS ORDERED: IBUP-844 PO (09:08)
[2020-04-22] MEDS ORDERED: FERR325T18 PO (09:08)
--- NOTE | 2020-04-22 09:10 | Discharge Inst-Women's Service ---
Discharge Inst-Women's Serv Depart Medication/Instructions New, Converted or Re-Newed RX: RX on Chart Instructions Keep incision clean and dry Wear abdominal binder as needed Nothing in the vagina No lifting over 25 pounds Final Diagnosis placental abruption post hemorrhage retained placenta acute blood loss anemia no care Grand mulipara advanced maternal age Problems Reviewed?: Yes Consults/Follow Up Additional Follow Up: Yes ([address] Benitez for vitals and CBC; 10 days with Rodo for staple removal) Activity Activity: Activity as Tolerated Driving Instructions: No Driving/Refer to Dr. MACARIO SMOKING: NO SMOKING Nothing Inside Vagina: No Douching, No [place], No Tampons Diet Discharge Diet: Other Diet (high protein diet) Symptoms to Report to : Bleeding Excessive, Pain Increased, Fever Over 101 Degrees F, Vaginal Bleeding Increase, Cramps in Feet or Legs, Vaginal Discharge Foul For Any Problems or Questions: Contact Your Physician Skin/Wound Care Infection Signs and Symptoms: Increased Redness, Foul Odor of Wound, Increased Drainage, Skin Itchy or Has a Rash, Increased Swelling, Temperature Above 101 F Stitches/Mariam/Dermabond: Care of Mariam Bathing Instructions: MARGARETTE Balderas DO Apr 22, 2020 09:10
--- NOTE | 2020-04-22 09:17 | Progress Note ---
Subjective Date Seen by a Provider: Apr 22, 2020 Time Seen by a Provider: 09:00 Subjective/Events-last exam Has ambulated without dizziness. UA wnl. [place] out. Tolerating diet. Would like to be discharged to have baby's . she is understandable tearful. RN has reported some drainage from incision but seems to be decreasing. Discussed with patient about wound care and follow up. She needs to increase protein intake and continue PNV. Iron supplementation. Will follow up with Dr. Benitez's office for CBC and then wee me for incision check/staple removal in 7- 10 days. Would expect her to have some vaginal bleeding bc cervix is present, but not excessive. Instructions have been given. Intake and Output 04/22/20 00:00 Intake Total 5100 ml Output Total 2700 ml Balance 2400 ml Intake Oral 1830 ml IV Total 3000 ml Other 270 ml Output Urine Total 2700 ml 04/21/20 04/22/20 04/22/20 21:43 02:08 05:27 Temp 37.2 37.2 Pulse 95 104 Resp 18 18 B/P (MAP) 110/56 (74) 126/68 (87) Pulse Ox 95 96 O2 Delivery Room Air Room Air Room Air 04/22/20 00:00 Intake Total 2850 ml Output Total 2250 ml Balance 600 ml Laboratory Tests Test 04/21/20 17:40 04/22/20 05:57 Range/Units Hemoglobin 7.9 L 7.2 L 11.5-16.0 g/dL Hematocrit 24 L 22 L 35-52 % White Blood Count 6.0 4.3-11.0 10^3/uL Red Blood Count 2.53 L 3.80-5.11 10^6/uL Mean Corpuscular Volume 87 80-99 fL Mean Corpuscular Hemoglobin 29 25-34 pg Mean Corpuscular Hemoglobin Concent 33 32-36 g/dL Red Cell Distribution Width 16.0 H 10.0-14.5 % Platelet Count 138 130-400 10^3/uL Mean Platelet Volume 10.4 9.0-12.2 fL Immature Granulocyte % (Auto) 2 % Neutrophils (%) (Auto) 69 42-75 % Lymphocytes (%) (Auto) 20 12-44 % Monocytes (%) (Auto) 8 0-12 % Eosinophils (%) (Auto) 1 0-10 % Basophils (%) (Auto) 0 0-10 % Neutrophils # (Auto) 4.1 1.8-7.8 10^3/uL Lymphocytes # (Auto) 1.2 1.0-4.0 10^3/uL Monocytes # (Auto) 0.5 0.0-1.0 10^3/uL Eosinophils # (Auto) 0.1 0.0-0.3 10^3/uL Basophils # (Auto) 0.0 0.0-0.1 10^3/uL Immature Granulocyte # (Auto) 0.1 0.0-0.1 10^3/uL Prothrombin Time 12.9 12.2-14.7 SEC INR Comment 0.9 0.8-1.4 Activated Partial Thromboplast Time 27 24-35 SEC Fibrinogen 359 221-496 MG/DL D-Dimer 2.17 H 0.00-0.49 UG/ML [place] intact - some serosanginuous drainage on the incision. Lungs CTA [place] RRR abdomen soft, + BS, + distension LE- no edema Objective Exam Vital Signs Date Time Temp Pulse Resp B/P (MAP) Pulse Ox O2 Delivery O2 Flow Rate FiO2 04/22/20 05:27 37.2 104 18 126/68 (87) 96 Room Air 04/22/20 02:08 37.2 95 18 110/56 (74) 95 Room Air 04/21/20 21:43 Room Air 04/21/20 20:09 37.1 95 20 125/78 (94) 96 Room Air 04/21/20 16:32 36.8 96 20 102/54 (70) 96 Room Air 04/21/20 15:06 37.0 86 20 105/63 96 Room Air 04/21/20 12:38 37.6 88 20 103/61 98 Room Air 04/21/20 12:23 37.1 103 20 107/66 97 Room Air 04/21/20 11:52 37.1 103 20 107/60 97 Room Air 04/21/20 09:24 38.1 122 20 124/77 98 Room Air I & O 04/22/20 07:00 Intake Total 6400 ml Output Total 3750 ml Balance 2650 ml Capillary Refill : Less Than 3 SecondsLess Than 3 Seconds General Appearance: No Apparent Distress Results Lab Laboratory Tests 04/21/20 17:40: Hemoglobin 7.9L, Hematocrit 24L 04/22/20 05:57: Hemoglobin 7.2L, Hematocrit 22L, White Blood Count 6.0, Red Blood Count 2.53L, Mean Corpuscular Volume 87, Mean Corpuscular Hemoglobin 29, Mean Corpuscular Hemoglobin Concent 33, Red Cell Distribution Width 16.0H, Platelet Count 138, Mean Platelet Volume 10.4, Immature Granulocyte % (Auto) 2, Neutrophils (%) (Auto) 69, Lymphocytes (%) (Auto) 20, Monocytes (%) (Auto) 8, Eosinophils (%) (Auto) 1, Basophils (%) (Auto) 0, Neutrophils # (Auto) 4.1, Lymphocytes # (Auto) 1.2, Monocytes # (Auto) 0.5, Eosinophils # (Auto) 0.1, Basophils # (Auto) 0.0, Immature Granulocyte # (Auto) 0.1, Prothrombin Time 12.9, INR Comment 0.9, Activated Partial Thromboplast Time 27, Fibrinogen 359, D-Dimer 2.17H Microbiology 04/20/20 Gram Stain - Final, Resulted 04/20/20 Anaerobic Culture, Resulted Pending 04/20/20 Surgical Culture, Resulted Pending Assessment/Plan Assessment/Plan Assess & Plan/Chief Complaint 1. POD 2 s/p emergency AURY, bilateral salpingectomy, d&c due to retained placenta/placental abruption/ post hemorrhage (EBL total 4500) 2. S/p 6 units PRBCs and 1 u FFP; Acute blood loss anemia 3. Stillbirth due to placental abruption Plan - routine post op from hysterectomy, SC home with instructions Clinical Quality Measures Admission Status Admission Dx 1. approximately 35 week gestation based on LMP 2. No pnc 3. third trimester bleeding with suspected abruption Admitted. Plan AROM and delivery Placenta to path Labs pending. She will accept blood products if needed. DIC panel done. preeclampsia labs done (BP 138/82, P 108) DVT/VTE Risk/Contraindication: Risk Factor Score Per Nursin RFS Level Per Nursing on Admit: 2=Moderate MARGARETTE GRULLON DO Apr 22, 2020 09:17
[2020-04-22] MEDS ORDERED: ACET-93 PO (09:26)
--- NOTE | 2020-04-22 10:45 | NUR ---
DISCHARGE INSTRUCTIONS REVIEWED WITH COPY TO PT. RXS GIVEN. STATES UNDERSTANDING OF ALL INSTRUCTIONS AND NEED TO F/U SCHEDULED AND NEEDED.
--- NOTE | 2020-04-22 11:00 | NUR ---
ABD PLACED ALONG INCISION. NO ACTIVE OOZING NOTED. ABD BINDER PLACED.
--- NOTE | 2020-04-22 11:05 | NUR ---
CONTACTED MEDICAL RECORDS FOR STILLBIRTH CERTIFICATE.
[2020-04-22 12:10] VITALS: BP 124/73
--- NOTE | 2020-04-22 12:10 | NUR ---
DISMISSED VIA W/C FROM [facility] WITH INFANT IN ARMS IN STABLE CONDITION TO FAMILY CAR ACC BY SPOUSE, [id number] AND WILMER HODGE PCT.
--- NOTE | 2020-04-23 17:15 | Short Stay Summary ---
Discharge Summary Hospital Course Was the Problem List Reviewed?: Yes Problems/Dx: (1) hemorrhage Status: Acute Qualifiers: Qualified Codes: O72.0 - Third-stage hemorrhage (2) DIC (disseminated intravascular coagulation) Status: Resolved (3) Third trimester bleeding, antepartum Status: Acute (4) Grand multipara in labor in third trimester Status: Chronic (5) Placental abruption in third trimester Status: Acute (6) No care in current Status: Chronic Qualifiers: Qualified Codes: O09.33 - Supervision of with insufficient care, third trimester (7) 35 to 36 weeks gestation of Status: Acute (8) Acute blood loss as cause of postoperative anemia Status: Acute (9) demise, greater than 22 weeks, delivered, current hospitalization Status: Acute Final Diagnosis: demise, no pNC, placental aruption, PPH Hospital Course Date of Admission: Apr 21, 2020 at 07:00 Admission Diagnosis : Family Physician/Provider: No,Local Physician Date of Discharge: 04/23/20 Discharge Diagnosis: demise no care placental abruption 35-6 week gestation post hemorrhage Hospital Course: the patient was admitted from EMS (home) with vaginal bleeding in the third trimester, no care at approximately 35-36 weeks. There were no hearttones on admission. The delivery was complicated by post hemorrhage that lead to hysterectomy as bleeding could not be controlled and she was in "early" DIC. she was given 4 units PRBCs and 1 unit FFP during surgery and then an additional 2 units on POD 1. She was initially admitted to the ICU for postoperative management. UO was decreased to none before and during surgery, but increased quickly after surgery and with blood transfusion. Her DIC labs returned to normal. she then had routine post operative course and wanted to be discharged to home on POD 2 (for the ). Please see discharge instructions. Labs and Pending Lab Test: Laboratory Tests 04/23/20 16:50: Lab Scanned Report Transfusion Reaction Form Microbiology 04/20/20 Gram Stain - Final, Resulted 04/20/20 Anaerobic Culture - Preliminary, Resulted Bacteroides uniformis 04/20/20 Surgical Culture - Preliminary, Resulted Mixed Bacterial Felicity 04/20/20 Urine Culture - Final, Complete NO GROWTH Home Meds Active Acetaminophen 500 Mg Tablet 1,000 Mg PO Q8H Oxyir Tablet (Oxycodone HCl) 5 Mg Tab 5 Mg PO Q4H PRN Ibu (Ibuprofen) 600 Mg Tablet 600 Mg PO Q6HR PRN Ferrous Sulfate 325 Mg Tablet 325 Mg PO BID WITH MEALS Reported Tablet ( Vit/Iron Fumarate/FA) 1 Each Tablet 1 Each PO DAILY Assessment/Pt Instructions Patient is discharged to home on POD 2. Arrangements made with Dr. Barney to have CBC drawn in [facility] as transportation is difficult for this patient and family. Appointment made with me in 10 days to have jennifer removed. She has a midline incision and poor dietary intake, plus recent and anemia will make healing difficult. Would leave jennifer in at least 10 days, but instructed the and patient to be seen quickly if she has issues with the jennifer and the incision. Discharge Instructions Discharge Diet: No Restrictions, Other Diet (high protein diet) Activity as Tolerated: Yes (n o lifting over 25 lbs, nothing in the vagina, no driving) Discharge Physical Examination General Appearance: Alert, Oriented X3 HEENT: Atraumatic Respiratory: Clear to Auscultation, Normal Air Movement Cardiovascular: Regular Rate, Normal S1, Normal S2 Abdominal: Normal Bowel Sounds Extremities: No Edema Skin: No Rashes, Other (Inc C/D/I with jennifer in tact. some drainae but this seemed appropriate) Allergies: Coded Allergies: No Known Drug Allergies (Unverified , 04/20/20) Copy Copies To 1: NICHOLAS BARNEY MD Discharge Summary Date of Admission Apr 21, 2020 at 07:00 Date of Discharge Apr 22, 2020 at 12:10 Discharge Date: Apr 22, 2020 Admission Diagnosis no care third trimester bleeding 35 week Consults/Procedures Procedures vaginal delivery post exam under anesthesia dilation and curettage abdominal supracervical hysterectomy blood transfusion x 6 units and 1 unit FFP Discharge Diagnosis 35 week third trimester third trimester bleeding demise (IUFD) placental abruption post hemorrhage acute blood loss anemia DIC (1) DIC (disseminated intravascular coagulation) Status: Resolved (2) Placental abruption in third trimester Status: Acute (3) hemorrhage Status: Acute Qualifiers: Qualified Codes: O72.0 - Third-stage hemorrhage (4) Grand multipara in labor in third trimester Status: Chronic (5) 35 to 36 weeks gestation of Status: Acute (6) Third trimester bleeding, antepartum Status: Acute (7) No care in current Status: Chronic Qualifiers: Qualified Codes: O09.33 - Supervision of with insufficient care, third trimester (8) Acute blood loss as cause of postoperative anemia Status: Acute (9) demise, greater than 22 weeks, delivered, current hospitalization Status: Acute Clinical Quality Measures DVT/VTE Risk/Contraindication: Risk Factor Score Per Nursin RFS Level Per Nursing on Admit: 2=Moderate MARGARETTE GRULLON DO Apr 23, 2020 17:13
== END 2020-04-22 12:10 | disposition home or self-care (01) | DRG 768 ==
LOC: LDRP 12:44 → WSo 12:44 → LDRP 21:00 → WSo 04-21 07:00 → LDRP 04-21 07:00
PROVIDERS: ADMIT Obstetrics & Gynecology; ATTEND Obstetrics & Gynecology
PROC: 0UB78ZZ Excision of Bilateral Fallopian Tubes, Via Natural or Artificial Opening Endoscopic (ICD-10-PCS; 2020-04-20)
PROC: 0W3R7ZZ Control Bleeding in Genitourinary Tract, Via Natural or Artificial Opening (ICD-10-PCS; 2020-04-20)
PROC: 10E0XZZ Delivery of Products of Conception, External Approach (ICD-10-PCS; principal; 2020-04-20 14:57)
PROC: 0UT97ZZ Resection of Uterus, Via Natural or Artificial Opening (ICD-10-PCS; 2020-04-20 14:57)
DX: O45.93 Premature separation of placenta, unspecified, third trimester (principal); Z37.1 Single stillbirth; O36.4XX0 Maternal care for intrauterine death, not applicable or unspecified; O72.2 Delayed and secondary postpartum hemorrhage; D62 Acute posthemorrhagic anemia; Z3A.35 35 weeks gestation of pregnancy; O90.81 Anemia of the puerperium
CPT/HCPCS: 36415; 80053; 81000; 85014; 85018; 85025; 85049; 85379; 85384; 85610; 85730; 86850; 86900; 86901; 86920; 87070; 87075; 87076; 87088; 87205; 94664

== ENCOUNTER → 2020-04-29 | Outpatient (CLI) | payer OTHER ==
[~2020-04-29] MED LIST changes: +ACET-93 PO; +FERR325T18 PO; +IBUP-844 PO; -LACTATED RINGERS 1,000 ML IV ONE; +OXC5T PO; +PREN-37 PO
[2020-04-29 15:32] LABS: HEMATOCRIT 27 % (35-52); HEMOGLOBIN 8.6 G/DL (11.5-16.0); MEAN CORPUSCULAR HEMOGLOBIN 29 PG (25-34); MEAN CORPUSCULAR HGB CONC 32 G/DL (32-36); MEAN CORPUSCULAR VOLUME 91 FL (80-99); MEAN PLATELET VOLUME 9.5 FL (7.4-10.4); NEUTROPHILS % (AUTO) 62 % (42-75); PLATELET COUNT 350 10^3/uL (130-400); WHITE BLOOD COUNT 5.1 10^3/uL (4.3-11.0)
[2020-04-29 15:33] LABS: BASOPHILS % (AUTO) 0 % (0-10); EOSINOPHILS # (AUTO) 0.1 10^3/uL (0.0-0.3); EOSINOPHILS % (AUTO) 2 % (0-10); LYMPHOCYTES # (AUTO) 1.3 X 10^3 (1.0-4.0); LYMPHOCYTES % (AUTO) 25 % (12-44); MONOCYTES # (AUTO) 0.5 X 10^3 (0.0-1.0); MONOCYTES % (AUTO) 9 % (0-12); NEUTROPHILS # (AUTO) 3.2 X 10^3 (1.8-7.8)
== END ==
LOC: LAB FS 14:43
PROVIDERS: ATTEND Family Medicine
DX: D62 Acute posthemorrhagic anemia (principal)
CPT/HCPCS: 36415; 85025

== ENCOUNTER 2021-02-17 05:37 | Outpatient (CLI) | payer OTHER ==
[~2021-02-17] VITALS: Ht 160 cm; Wt 127.3 kg
== END 2021-02-17 14:45 | disposition home or self-care (01) ==
LOC: PREOP 05:37
PROVIDERS: ATTEND Surgery
DX: Z01.818 Encounter for other preprocedural examination (principal)

== ENCOUNTER 2021-02-19 08:27 | Day surgery (SDC) | payer OTHER ==
[2021-02-19] VITALS (10 sets, daily range): BP systolic 110–133; BP diastolic 63–82
[~2021-02-19] VITALS: Ht 160 cm; Wt 127.3 kg
[2021-02-19] MEDS ORDERED: ceFAZolin 2 GM IV Premixed 50 ML IV ONE (08:45)
[2021-02-19] MEDS: LACTATED RINGERS 1,000 ML IV PRN ×2 (09:22→12:59)
[2021-02-19 09:32] LABS: BASOPHILS % (AUTO) 0 % (0-10); EOSINOPHILS # (AUTO) 0.1 10^3/uL (0.0-0.3); EOSINOPHILS % (AUTO) 3 % (0-10); HEMATOCRIT 39 % (35-52); HEMOGLOBIN 12.6 g/dL (11.5-16.0); LYMPHOCYTES # (AUTO) 1.5 10^3/uL (1.0-4.0); LYMPHOCYTES % (AUTO) 33 % (12-44); MEAN CORPUSCULAR HEMOGLOBIN 27 pg (25-34); MEAN CORPUSCULAR HGB CONC 32 g/dL (32-36); MEAN CORPUSCULAR VOLUME 83 fL (80-99); MEAN PLATELET VOLUME 10.3 fL (9.0-12.2); MONOCYTES # (AUTO) 0.4 10^3/uL (0.0-1.0); MONOCYTES % (AUTO) 8 % (0-12); NEUTROPHILS # (AUTO) 2.6 10^3/uL (1.8-7.8); NEUTROPHILS % (AUTO) 56 % (42-75); PLATELET COUNT 245 10^3/uL (130-400); WHITE BLOOD COUNT 4.6 10^3/uL (4.3-11.0)
[2021-02-19] MEDS ORDERED: LIDOCAINE/EPI 1%-1:100,000 (XYLOCAINE) 20ML ONE (09:39)
--- NOTE | 2021-02-19 10:37 | Progress Note-Pre Operative ---
Pre-Operative Progress Note H&P Reviewed The H&P was reviewed, patient examined and no changes noted. Time Seen by Provider: 10:34 Date H&P Reviewed: Feb 19, 2021 Time H&P Reviewed: 10:34 Pre-Operative Diagnosis: Incarcerated incisional hernia, umbilical hernia RIP BENÍTEZ DO Feb 19, 2021 10:37
[2021-02-19] MEDS ORDERED: ONDANSETRON 4 MG/2 ML (SDV) Z0FRAN ONE ×2 (11:07→12:10)
[2021-02-19] MEDS ORDERED: ROCURONIUM 10 MG/ML 5 ML SYRINGE IV ONE (11:07)
[2021-02-19] MEDS ORDERED: LIDOCAINE PF 2% 5 ML (XYLOCAINE) VIAL ONE (11:07)
[2021-02-19] MEDS ORDERED: fentaNYL INJ 100 MCG/2 ML AMP ONE (11:07)
[2021-02-19] MEDS ORDERED: MIDAZOLAM 2 MG/2 ML (VERSED) VIAL ONE (11:08)
[2021-02-19] MEDS ORDERED: ONDANSETRON 4 MG/2 ML (SDV) Z0FRAN IVP ONE (12:15)
[2021-02-19] MEDS ORDERED: SUCCINYLCHOLINE INJ 100 MG/5 ML SYR/VIAL ONE (12:43)
[2021-02-19] MEDS ORDERED: GLYCOPYRROLATE 0.2 MG/ML (ROBINUL) 2 ML VIAL ONE (13:04)
[2021-02-19] MEDS ORDERED: NEOSTIGMINE 3 MG/3 ML VIAL ONE (13:04)
[2021-02-19] MEDS ORDERED: SEVOFLURANE (ULTANE) 15 ML INHAL SOLN ONE (13:10)
[2021-02-19] MEDS ORDERED: ACHD5005 PO (13:12)
--- NOTE | 2021-02-19 13:12 | Progress Note-Post Operative ---
Post-Operative Progess Note Surgeon (s)/Typo Machine Operator (s) Surgeon RIP BENÍTEZ DO Typo Machine Operator: [place] Pre-Operative Diagnosis Incarcerated incisional hernia, umbilical hernia Post-Operative Diagnosis same Procedure & Operative Findings Date of Procedure 02/19/21 Procedure Performed/Findings PROCEDURE: Laparoscopic Ventral/Incisional hernia repair with mesh. COMPLICATIONS: None. INDICATIONS: The patient is a 40, female with an incarcerated ventral/incisional hernia, which has increased in size and is causing discomfort. The patient was explained the risk and benefits of the procedure and wished to proceed with the procedure. Consent was signed on the chart. DESCRIPTION OF PROCEDURE: The patient was taken into the operating suite, prepped and draped in sterile fashion. Surgical pause was performed. Local anesthetic was infiltrated in left upper quadrant. A 15 blade scalpel was used to make a small skin incision. Cautery was used to dissect down to the fascia, which was then scored and divided the muscle, went through the posterior sheath and a balloon trocar was inserted into the abdomen. The abdomen was then insufflated. Incarcerated ventral/ incisional hernia was seen with incarcerated omentum. The umbilicus had small defect but only preperitoneal fat near it, no obvious defect could be seen. A 5 mm trocar was placed in the right mid-abdomen and a 5 mm trocar was placed in left lower quadrant. Elected to not close the defect, picture were taken and omentum reduced from the defect. Elected not to close umbilical hernia. Echo Ventralight mesh was then inserted in the abdomen grabbed through the stab incision. The balloon was inflated on the mesh. Circumferential tacks were placed with a SecureStrap Tacker. The balloon was then removed and inner crown was created as well. The mesh was tacked with pressure being decreased. The 12 mm fascial defect was then closed using 0 Vicryl. The abdomen was then desufflated,the trocars were removed. The skin was then closed using 4-0 Monocryl in a running subcuticular fashion. The abdomen was washed and dried and Skin Affix was placed over the incisions. The patient tolerated procedure well without any complications. She was taken to recovery room in stable condition. Dr. Burnett assisted on this case helping to make incisions, hold anatomy out of the way and place tacks in the mesh. Anesthesia Type GET Estimated Blood Loss Estimated blood loss (mL): scant Specimens/Packing Specimens Removed none RIP BENÍTEZ DO Feb 19, 2021 13:11
--- NOTE | 2021-02-19 13:14 | Discharge Inst-Surgical ---
Discharge Inst-Surgical Depart Medication/Instructions New, Converted or Re-Newed RX: Transmitted to Pharmacy Patient Instructions Follow up Appt: Make appointment for 1 week. [phone] Instructions: No lifting greater than 20 pounds. No strenuous activity. May shower in 24 hours, no tub bath or soaking. Use incentive spirometer at home as directed. No Smoking Skin/Wound Care: May remove bandages in am. You need to leave the Dermabond on incision it will fall off on it's own. Symptoms to Report: Appetite Changes, Extremity Discoloration, Numbness/Tingling, Swelling Increased, Bleeding Excessive, Eyesight Changes, Pain Increased, Urine Color Change, Constipation(Persistent), Fever over 101 degree F, Pain/Pressure in chest, Urinating Difficulty, Cough Up/Vomit Blood, Heart Beat Irreg/Pounding, Pain/Pressure in jaw, Cramps in feet or legs, Lightheadedness, Pain/Pressure in shoulder, Diarrhea(Persistent), Memory Changes Suddenly, Questions/Concerns, Weight gain consecutive days, Dizziness/Fainting, Nausea/Vomiting, Shortness of Breath, Weight gain over 2 pounds If questions or concerns contact your physician Or seek help at emergency department. Activity Activity as Tolerated: Yes Activity Instructions: Avoid Stress to Incision Diet Discharge Diet: No Restrictions Diet After 24 Hours: Clear Liquid if Nauseous If Any Problems/Questions/Issu: Contact Your Physician, Go to Emergency Room Skin/Wound Care Infection Signs and Symptoms: Increased Redness, Foul Odor of Wound, Increased Drainage, Skin Itchy or Has a Rash, Increased Swelling, Temperature Above 101 F Bathing Instructions: RIP Nguyen DO Feb 19, 2021 13:14
[2021-02-19] MEDS ORDERED: HYDROmorphone 2 MG/ML VIAL (DILAUDID) IV ONE (13:30)
[2021-02-19] MEDS ORDERED: MEPERIDINE (DEMEROL) INJ 50 MG/ML IVP ONE (13:30)
[2021-02-19] MEDS ORDERED: morphine INJ 10 MG/ML 1ML (SYR OR VIAL) IVP ONE (13:30)
[2021-02-19] MEDS ORDERED: PROMETHAZINE INJ 25 MG/ML (PHENERGAN) AMP IVP ONE (13:30)
[2021-02-19] MEDS ORDERED: ONDANSETRON 4 MG/2 ML (SDV) Z0FRAN IVP PRN (13:30)
[2021-02-19] MEDS ORDERED: HYDROcodone/APAP 5 MG/325 MG (LORTAB) TAB PO ONE (14:15)
[2021-02-19] MEDS ORDERED: HYDROcodone/APAP 5 MG/325 MG (LORTAB) TAB ONE (14:22)
--- NOTE | 2021-02-19 14:46 | Anesthesia-General Post-Op ---
General Patient Condition Mental Status/LOC: Same as Preop Cardiovascular: Satisfactory Nausea/Vomiting: Absent Respiratory: Satisfactory Pain: Controlled Complications: Absent Post Op Complications Complications None Follow Up Care/Instructions Patient Instructions None needed. Anesthesia/Patient Condition Patient Condition Patient is doing well, no complaints, stable vital signs, no apparent adverse anesthesia problems. No complications reported per nursing. AASHISH HARRIS CRNA Feb 19, 2021 14:46
== END 2021-02-19 15:15 | disposition home or self-care (01) ==
LOC: SDC 08:27
PROVIDERS: ATTEND Surgery
DX: K43.0 Incisional hernia with obstruction, without gangrene (principal); K42.0 Umbilical hernia with obstruction, without gangrene; E66.01 Morbid (severe) obesity due to excess calories; Z68.42 Body mass index [BMI] 45.0-49.9, adult
CPT/HCPCS: 49655; 85025; 87081; C1781; 36415